=== PATIENT | female | born 1945 | race Two or more races ===

== ENCOUNTER 2018-04-10 04:50 | Day surgery (SDC) | payer OTHER ==
[~2018-04-10 04:50] MED LIST: ASA81 MG PO; ATORVASTATIN CA10 MG PO; HYDROCHLOROTH12.5 M1 PO; NORVASC2.5 M1 PO; XANAX XR2 MG PO
== END 2018-04-10 13:55 | disposition home or self-care, planned readmission (81) ==
LOC: CIR.AMB 04:50 → AMB-ENDOS 09:15 → CIR.AMB 13:55
DX: K64.8 Other hemorrhoids (principal); K64.4 Residual hemorrhoidal skin tags